=== PATIENT | male | born 2000 | race Caucasian/White ===

== ENCOUNTER → 2019-04-19 | Outpatient (CLI) | payer OTHER ==
[~2019-04-19] MED LIST: DOCU-109 PO; GADOBUTROL 7.5 MMOL/7.5 ML VIAL INT ART ONE; HYDR-3164 PO; IOHEXOL 300 MG/ML 50 ML VIAL. INT ART ONE; LIDOCAINE 1% Multi-Dose 20 ML VIAL. ID ONE; ONDA8TAB9 PO
--- NOTE | 2019-04-19 15:53 | KCIC ---
EXAM: Left glenohumeral joint injection WITH Fluoroscopic guidance DATE: 04/19/2019 2:30 PM CLINICAL HISTORY: Left shoulder pain COMPARISON: None pertinent TECHNIQUE: The patient was informed of the indications and alternatives for this procedure as well as risks and benefits. No immediate contraindication identified. The patient provided informed, written consent. Laterality was confirmed by the entire team following a time out. Following initial left glenoid humeral joint localization, a suitable area was sterilely prepped and draped. Local anesthesia was administered with 1% xylocaine. With intermittent fluoroscopic observation, a 22-gauge spinal needle was advanced into the left glenohumeral joint sheath/capsule with confirmation of intra-synovial position with infusion of less than 1 cc iodinated contrast. Subsequent infusion 13 cc solution containing 10 cc saline, 5 cc lidocaine 1%, 5 cc Isovue and 0.1 cc gadolinium. Hemostasis with local pressure. Local clinical exam negative for immediate complication. Patient informed re local potential signs or symptoms that may indicate need to return to ER/Ordering physician for further evaluation. Patient informed re precautionary measures after intra-synovial injection of anesthetic. Patient expressed understanding. Performing Physicians: Dr. Ranjit Cotto Blood Loss: 0 cc Pre-procedural Pain Scale: 4 Post-procedural Pain Scale: 0 Total Fluoroscopy time: 6 seconds Total spot images taken: 0 IMPRESSION: Successful intra-synovial injection left glenohumeral joint with gadolinium contrast per clinical request. Electronically signed by: Jax Cotto MD (04/19/2019 3:50 PM) [id number]
--- NOTE | 2019-04-19 15:58 | KCIC ---
EXAM: MR arthrogram left shoulder DATE: 04/19/2019 3:30 PM COMPARISON: Radiographs 04/05/2019 INDICATION: Recurrent shoulder dislocations. TECHNIQUE: Multiplanar, multisequence MRI of the left shoulder was performed following the administration of intra-articular gadolinium contrast. Please see separate procedure report for full details. FINDINGS: AC joint is congruent. Mild lateral downsloping of the distal acromion. Type I acromion. No significant subacromial or subdeltoid bursal edema. Iatrogenic distention of the left glenohumeral joint. Rotator cuff muscle signal and bulk is normal. No rotator cuff tear is seen. The intra and extraarticular long head biceps tendon is normal in signal and morphology. No tendinosis. Deformity of the posterior superior humeral head from Hill-Sachs deformity. There is an anterior inferior labral tear with partial contrast extension through the labral-chondral junction from the 3-6:00 position. No definite chondral injury. No evidence for fracture or osteonecrosis. IMPRESSION: 1. Anterior-inferior labral tear with partial detachment from the 3:00-6:00 position. 2. Changes of the Hill-Sachs deformity are seen. 3. No discrete rotator cuff tear. Electronically signed by: Jax Cotto MD (04/19/2019 3:54 PM) [facility]
== END | disposition home or self-care (01) ==
LOC: KCIC 14:10
PROVIDERS: ATTEND Orthopaedic Surgery Sports Medicine
DX: M24.412 Recurrent dislocation, left shoulder (principal)
CPT/HCPCS: 23350; 73040; 73222; A9585; Q9967

== ENCOUNTER → 2019-05-23 | Day surgery (SDC) | payer OTHER ==
[~2019-05-23] MED LIST changes: +BUPIVACAINE MPF 0.5% 30 ML VIAL. IJ ONE; +BUPIVACAINE MPF 0.5% 30 ML VIAL. ONE; +DESFLURANE 61 TO 120 MINUTES IH ONE; +DEXAMETHASONE SOD PHOS 4 MG/ML VIAL ONE; +EPINEPHrine VIAL 30 MG/30 ML VIAL ONE; +ESMOLOL 100 MG/10 ML VIAL. IVP ONE; -GADOBUTROL 7.5 MMOL/7.5 ML VIAL INT ART ONE; +GLYCOPYRROLATE 1 MG/5 ML VIAL. ONE; +HYDROcodone/APAP 5/325MG 1 TAB TABLET PO ONE; -IOHEXOL 300 MG/ML 50 ML VIAL. INT ART ONE; +IV RINGERS,LACTATED 1000ML 1,000 ML IV SCH; +LIDOCAINE 1% 20 ML VIAL. IJ ONE; +LIDOCAINE 1% 20 ML VIAL. ONE; -LIDOCAINE 1% Multi-Dose 20 ML VIAL. ID ONE; +LIDOCAINE 1% PF 2 ML VIAL. ONE; +LIDOCAINE 2% PF 5 ML VIAL. ONE; +MIDAZOLAM HCL/PF 2 MG/2 ML VIAL. ONE; +NEOSTIGMINE METHYLSULFATE 5 MG/5 ML SYRINGE. ONE; +ONDANSETRON PF 4 MG/2 ML VIAL. ONE; +PROPOFOL 20 ML IV ONE; +ROCURONIUM 50 MG/5 ML VIAL. ONE; +fentaNYL PF VIAL 100 MCG/2 ML VIAL ONE
--- NOTE | 2019-05-23 07:43 | DISCH ---
DISCHARGE INSTRUCTIONS Condition on Discharge Condition on Discharge: Stable Activity After Discharge Activity Instructions for Disc: Other, see below Other activity instructions: arm to remain in sling Bathing Instructions: Shower-keep dressing dry Driving Instructions after Dis: Do not drive Weight Bearing Status after Di: Non weight bearing Diet after Discharge Diet after Discharge: Regular Wound Incision Care Wound/Incision Care: Ice to area for comfort, Keep wound/cast CDI, Change dressing Other wound/incision instructi: ok to change dressing as needed Contacting the DR. after DC Call your doctor for: Concerns you may have Follow-Up Follow up with: Orlin in 2 wks HAWA FRANCO II, MD May 23, 2019 07:43
--- NOTE | 2019-05-23 09:21 | PDOC4 ---
Operative Note Operative Note Date of procedure: 05/23/2019 Surgeon: Jono Franco Marketing Operations Coordinator: Magy Butler, certified public accountant was necessary to manipulate the arm and manipulation of instruments during the surgery Preoperative diagnosis: Left shoulder recurrent anterior instability Postoperative diagnosis: Same Procedure performed: Arthroscopic left shoulder anterior labral repair Anesthesia: Gen. plus regional nerve block Blood loss: 10 mL Findings: Anterior labrum was torn and scarred to glenoid neck Small amount of scuffing anteriorly otherwise glenohumeral cartilage was unr emarkable Rotator cuff unremarkable. Small Hill-Sachs lesion Remainder of labrum intact circumferentially Biceps tendon unremarkable Components inserted: Cleary and nephew suturefix 1.7 mm anchors �3 Complications: None Reason for procedure: Patient is a very pleasant 18-year-old who has had recurrent anterior shoulder instability despite conservative treatments including physical therapy and sling use in the past. We have discussed the risks, benefits, and alternatives to the above surgery and he wished to proceed. Description of procedure: Patient was greeted in the preoperative holding area by myself for the correct extremity was verified and marked. He was taken to the operative suite and his antibiotics were started as he was brought back. Prior to coming back to the operating room, he had placement of a regional nerve block by the anesthesiology team. Once in the operating room, he was transferred gently supine to the operating room table and secured to bed with all pressure points padded in a lateral decubitus position with his left side up, after successful induction of a general anesthetic. He was held in place with a Vac- Pac. All down pressure points were padded and an axillary roll was used. The left upper extremity and shoulder girdle were then prepped and draped in our usual sterile fashion including [place]an at the periphery. Our standard preoperative timeout was conducted. I then palpated and marked surface anatomy and to lines my anticipated stab incisions. I used a spinal needle to localize a posterior superior portal and incised skin in accordance with this and introduce the blunt arthroscopic trocar followed by the camera into the glenohumeral joint. I then created an anterosuperior and anteroinferior portals under spinal needle localization and placed cannulas in these. I then conducted my diagnostic arthroscopy with the above-noted findings. I do not feel he had any bone loss anteriorly. After my diagnostic arthroscopy, I used the arthroscopic elevator to mobilize the labrum working along the neck of the glenoid until I had abundant tissue to work with. After this, I placed my most inferior suture anchor and then shuttled a PDS suture through the anteroinferior capsule and labrum while an media center assistant pulled traction superiorly to help me obtain a pig bite of tissue. I then used the PDS suture to shuttle one of the suture limbs from my anchor through and tied it down using arthroscopic knot-tying technique. I placed 2 more anchors repeating the same maneuver. After this, I inspected my repair, st able to probing and I felt like I had mobilized adequate tissue. I then took my final images and removed the excess arthroscopic fluid and any loose debris through the shaver. The arthroscopic interpretation and cannulas were then removed. Surgery was well tolerated by the patient. No complications. At the conclusion, he was ways into an abduction pillow sling and laid supine and t ransferred supine to the recovery room cart and taken to PACU in a stable next bit condition. Postoperative plan is to get him started on physical therapy early next week. I will see him back in 2 weeks. He'll be discharged home, nonweightbearing. JONO FRANCO II, MD May 23, 2019 09:21
[2019-05-23 10:10] VITALS: BP 138/75
== END ==
LOC: SURG 05:56
PROVIDERS: ATTEND Orthopaedic Surgery Sports Medicine
DX: M25.312 Other instability, left shoulder (principal); M24.412 Recurrent dislocation, left shoulder; Z72.89 Other problems related to lifestyle
CPT/HCPCS: 29806; A7015; C1713; C1782; J0171; J0690; J1100; J2001; J2250; J2405; J2704; J2710; J3010; J3490; J7120